=== PATIENT | female | born 1950 | race Caucasian/White ===

== ENCOUNTER 2016-10-14 14:04 | Inpatient (IN) | payer MEDICARE, OTHER ==
[~2016-10-14 14:04] MED LIST: ADULT LOW DOSE81 MG; AMITRIPTYLINE H25 M1 PO; AMITRIPTYLINE H50 M1 PO; ASPIR 8181 M1 PO; ASPIRIN EC81 MG PO; B COMPLEX1 TAB; BENAZEPRIL HCL20 M2 PO; BENAZEPRIL HCL20 MG; BUMETANIDE0.5 M1 PO; BUMETANIDE2 MG; CEFAZOLIN2000 MG/50 IV; CHOLESTYRAMINE378 GM; CINNAMON500 M1 PO; CLONIDINE HCL0.1 M2 PO; COREG CR40 MG; COREG25 M1 PO; COUMADIN2.5 MG; COUMADIN4 M1 PO; COUMADIN5 M2 PO; COUMADIN5 MG; CYCLOBENZAPRINE10 MG; DAILY MULTIPLE1 EAC2 PO; DIGITEK250 MCG; DIOVAN320 M1 PO; DOCUSATE CALCI240 M1 PO; DOCUSATE SODIU100 M2 PO; DOK250 MG; DULCOLAX10 MG RC; FEOSOL325 M1 PO; FISH OIL 1,0001 CA1; FISH OIL 1,2001 EAC4 PO; FLOMAX0.4 M1 PO; GARLIC1 CAP; GARLIC500 M2 PO; GLUCOPHAGE500 M3 PO; GLUCOSAMINE/CHO1 T; HUMALOG100 UNITS/ SC; HYDROCODONE; HYDROCODONE/APA1 CAP; IBUPROFEN400 M1 PO; IBUPROFEN800 MG; METFORMIN HCL500 M2 PO; MULTIVITAMINS1 EAC6 PO; NEURONTIN300 M1 PO; NORCO 5-325 TA1 EACH PO; NORMAL SALINE FL2 ML IJ; NORVASC5 M2 PO; PACERONE200 M1 PO; POTASSIUM CHLO10 ME2 PO; POTASSIUM CHLO20 MEQ; POTASSIUM GLUC500 MG PO; PRAVACHOL40 M1 PO; PREDNISONE5 M1 PO; PREMARIN0.625 MG; PROTONIX40 M2 PO; ROXICODONE5 M2 PO; SUPER B COMPLE1 EAC2 PO; TIROSINT25 MC1 PO; TRAMADOL; TRAMADOL HCL50 MG; TYLENOL325 M2 PO; VITAMIN C WIT1000 M3 PO; VITAMIN D-32000 UNI3 PO; VITAMIN D32000 UNI2 PO; VYTORIN 10/40 T1 TAB; ZANAFLEX4 M; ZANAFLEX4 M3 PO
[2016-10-14] MEDS ORDERED: COUMADIN4 M1 PO (14:13)
[2016-10-14] MEDS ORDERED: COUMADIN5 M2 PO (14:13)
[2016-10-14] MEDS ORDERED: COREG25 M1 PO (14:14)
[2016-10-14] MEDS ORDERED: NEURONTIN100 M1 PO (14:14)
[2016-10-14] MEDS ORDERED: COZAAR100 M1 PO (14:14)
[2016-10-14] MEDS ORDERED: PRAVASTATIN SOD40 M1 PO (14:14)
[2016-10-14] MEDS ORDERED: BUMETANIDE0.5 M1 PO (14:15)
[2016-10-14] MEDS ORDERED: AMITRIPTYLINE H25 M1 PO (14:15)
[2016-10-14] MEDS ORDERED: GLUCOPHAGE XR500 M1 PO (14:15)
[2016-10-14] MEDS ORDERED: POTASSIUM CHLO10 ME2 PO (14:15)
[2016-10-14] MEDS ORDERED: PROTONIX40 M2 PO (14:15)
[2016-10-14] MEDS ORDERED: SYNTHROID25 MC1 PO (14:16)
[2016-10-14] MEDS ORDERED: PERCOCET 10-321 EACH PO (14:16)
[2016-10-14] MEDS ORDERED: ASPIRIN81 M1 PO (14:17)
[2016-10-14] MEDS ORDERED: DOCUSATE SODIU100 M2 PO (14:18)
[2016-10-14] MEDS ORDERED: NEPHROCAPS SOFTG1 M1 PO (14:19)
[2016-10-14] MEDS ORDERED: VITAMIN C1000 M1 PO (14:19)
[2016-10-14] MEDS ORDERED: FISH OIL 1,2001 EAC8 PO (14:20)
[2016-10-14] MEDS ORDERED: CINNAMON500 M1 PO (14:21)
[2016-10-14] MEDS ORDERED: GARLIC1000 M1 PO (14:21)
[2016-10-14] MEDS ORDERED: VITAMIN D31000 UNI3 PO (14:21)
[2016-10-14 15:58] LABS: ANION GAP 22 mmol/L (0-20); BLOOD UREA NITROGEN 97 mg/dl (6-24); CARBON DIOXIDE-VENOUS 17 mmol/L (22-32); CHLORIDE 103 mmol/l (96-110); GLUCOSE 80 mg/dL (70-110); POTASSIUM 6.1 mmol/L (3.7-5.1); SODIUM 136 mmol/L (135-145)
[2016-10-14 15:59] LABS: ALB/GLOB RATIO 0.7 (0.8-2.0); ALBUMIN 2.8 g/dl (3.5-5.0); BILIRUBIN,TOTAL 0.4 mg/dl (0-1.5); CALCIUM 10.2 mg/dl (8.5-10.5); eGFR VALUE FOR BLACK 2 mL/Min
[2016-10-14 16:00] LABS: ALKALINE PHOSPHATASE 72 U/L (33-138); ALT/SGPT 16 U/L (12-78); AST/SGOT 8 U/L (10-40)
[2016-10-14 16:01] LABS: INR 3.6 INR (0.9-1.1); PROTHROMBIN TIME 42.9 SECONDS (9.0-13.6)
[2016-10-14 16:42] LABS: BASO % 0.2 % (0-2); EOS % 8.2 % (0-7); EOSINOPHIL ABSOLUTE COUNT 1.5 tho/cmm (0.0-0.7); HCT-HEMATOCRIT 29.2 % (34.0-49.0); HGB-HEMOGLOBIN 9.6 gm/dl (12.0-15.5); IMMATURE GRANULOCYTES ABSOLUTE 0.32 tho/cmm (0-0.03); IMMATURE GRANULOCYTES PERCENT 1.8 % (0-0.3); LYMPH % 18.9 % (20-45); LYMPH ABSOLUTE COUNT 3.4 tho/cmm (0.8-4.5); MCH (MEAN CORPUSCULAR HGB) 28.2 pg (28.0-32.0); MCHC MEAN CORPUSCULAR HGB CONC 32.9 % (32.0-36.0); MCV (MEAN CELL VOLUME) 85.9 fl (82.0-96.0); MEAN PLATELET VOLUME 8.8 cmc (9.4-12.4); MONO % 10.4 % (0-12); MONOCYTE ABSOLUTE COUNT 1.9 tho/cmm (0.0-1.2); NEUTROPHILS % 60.5 % (40-80); PLATELET COUNT 210 tho/cmm (150-450); RED CELL DISTRIBUTION WIDTH 14.4 % (12.4-16.4); WHITE BLOOD COUNT 18.1 tho/cmm (4.0-10.0)
[2016-10-14 17:18] LABS: PROCALCITONIN 0.42 ng/ml (0.05-0.09)
[2016-10-14 21:43] LABS: ANION GAP 22 mmol/L (0-20); BLOOD UREA NITROGEN 97 mg/dl (6-24); CALCIUM 9.7 mg/dl (8.5-10.5); CARBON DIOXIDE-VENOUS 19 mmol/L (22-32); CHLORIDE 103 mmol/l (96-110); GLUCOSE 72 mg/dL (70-110); POTASSIUM 5.6 mmol/L (3.7-5.1); SODIUM 138 mmol/L (135-145); eGFR VALUE FOR BLACK 3 mL/Min
[2016-10-14 23:35] LABS: POTASSIUM 4.4 mmol/L (3.7-5.1)
[2016-10-15 04:57] LABS: BASO % 0.2 % (0-2); EOS % 10.5 % (0-7); EOSINOPHIL ABSOLUTE COUNT 1.3 tho/cmm (0.0-0.7); HCT-HEMATOCRIT 26.6 % (34.0-49.0); HGB-HEMOGLOBIN 8.7 gm/dl (12.0-15.5); IMMATURE GRANULOCYTES ABSOLUTE 0.18 tho/cmm (0-0.03); IMMATURE GRANULOCYTES PERCENT 1.4 % (0-0.3); LYMPH % 13.4 % (20-45); LYMPH ABSOLUTE COUNT 1.7 tho/cmm (0.8-4.5); MCH (MEAN CORPUSCULAR HGB) 27.9 pg (28.0-32.0); MCHC MEAN CORPUSCULAR HGB CONC 32.7 % (32.0-36.0); MCV (MEAN CELL VOLUME) 85.3 fl (82.0-96.0); MONO % 7.8 % (0-12); NEUTROPHIL ABSOLUTE COUNT 8.4 tho/cmm (1.6-8.0); NEUTROPHIL-AUTOMATED 8.4 tho/cmm (1.6-8.0); NEUTROPHILS % 66.7 % (40-80); PLATELET COUNT 196 tho/cmm (150-450); RED BLOOD COUNT 3.12 mil/cmm (4.00-5.20); RED CELL DISTRIBUTION WIDTH 14.4 % (12.4-16.4); WHITE BLOOD COUNT 12.6 tho/cmm (4.0-10.0)
[2016-10-15 05:28] LABS: INR 2.7 INR (0.9-1.1); PROTHROMBIN TIME 32.7 SECONDS (9.0-13.6)
[2016-10-15 05:33] LABS: ALB/GLOB RATIO 0.6 (0.8-2.0); ALBUMIN 2.3 g/dl (3.5-5.0); ALKALINE PHOSPHATASE 65 U/L (33-138); ALT/SGPT 14 U/L (12-78); ANION GAP 20 mmol/L (0-20); AST/SGOT 14 U/L (10-40); BILIRUBIN,TOTAL 0.4 mg/dl (0-1.5); BLOOD UREA NITROGEN 64 mg/dl (6-24); CALCIUM 8.3 mg/dl (8.5-10.5); CARBON DIOXIDE-VENOUS 23 mmol/L (22-32); CHLORIDE 100 mmol/l (96-110); MAGNESIUM 1.8 mg/dl (1.8-2.6); POTASSIUM 3.9 mmol/L (3.7-5.1); SODIUM 139 mmol/L (135-145)
[2016-10-15 06:08] LABS: GLUCOSE 190 mg/dL (70-110); PHOSPHOROUS 4.5 mg/dl (2.5-4.9); eGFR VALUE FOR BLACK 4 mL/Min
[2016-10-16 05:03] LABS: INR 2.1 INR (0.9-1.1)
[2016-10-16 05:08] LABS: PROTHROMBIN TIME 24.4 SECONDS (9.0-13.6)
[2016-10-16 05:09] LABS: BASO % 0.2 % (0-2); EOS % 13.4 % (0-7); EOSINOPHIL ABSOLUTE COUNT 1.8 tho/cmm (0.0-0.7); HCT-HEMATOCRIT 27.3 % (34.0-49.0); HGB-HEMOGLOBIN 8.8 gm/dl (12.0-15.5); IMMATURE GRANULOCYTES ABSOLUTE 0.42 tho/cmm (0-0.03); IMMATURE GRANULOCYTES PERCENT 3.2 % (0-0.3); LYMPH % 20.1 % (20-45); LYMPH ABSOLUTE COUNT 2.6 tho/cmm (0.8-4.5); MCH (MEAN CORPUSCULAR HGB) 27.9 pg (28.0-32.0); MCHC MEAN CORPUSCULAR HGB CONC 32.2 % (32.0-36.0); MCV (MEAN CELL VOLUME) 86.7 fl (82.0-96.0); MEAN PLATELET VOLUME 8.9 cmc (9.4-12.4); MONO % 10.7 % (0-12); MONOCYTE ABSOLUTE COUNT 1.4 tho/cmm (0.0-1.2); NEUTROPHIL ABSOLUTE COUNT 6.8 tho/cmm (1.6-8.0); NEUTROPHIL-AUTOMATED 6.8 tho/cmm (1.6-8.0); NEUTROPHILS % 52.4 % (40-80); PLATELET COUNT 191 tho/cmm (150-450); RED BLOOD COUNT 3.15 mil/cmm (4.00-5.20); RED CELL DISTRIBUTION WIDTH 14.6 % (12.4-16.4)
[2016-10-16 05:13] LABS: ALBUMIN 2.1 g/dl (3.5-5.0); ANION GAP 14 mmol/L (0-20); BLOOD UREA NITROGEN 33 mg/dl (6-24); CALCIUM 7.7 mg/dl (8.5-10.5); CARBON DIOXIDE-VENOUS 26 mmol/L (22-32); CHLORIDE 102 mmol/l (96-110); PHOSPHOROUS 4.8 mg/dl (2.5-4.9); POTASSIUM 3.6 mmol/L (3.7-5.1); SODIUM 138 mmol/L (135-145); eGFR VALUE FOR BLACK 6 mL/Min
[2016-10-16 05:27] LABS: CREATININE 7.58 mg/dl (0.50-1.10); GLUCOSE 92 mg/dL (70-110)
[2016-10-17 05:06] LABS: HGB-HEMOGLOBIN 8.9 gm/dl (12.0-15.5); MCH (MEAN CORPUSCULAR HGB) 27.7 pg (28.0-32.0); MCHC MEAN CORPUSCULAR HGB CONC 31.8 % (32.0-36.0); MCV (MEAN CELL VOLUME) 87.2 fl (82.0-96.0); MEAN PLATELET VOLUME 8.8 cmc (9.4-12.4); NEUTROPHIL-AUTOMATED 7.3 tho/cmm (1.6-8.0); PLATELET COUNT 189 tho/cmm (150-450); RED BLOOD COUNT 3.21 mil/cmm (4.00-5.20); RED CELL DISTRIBUTION WIDTH 14.2 % (12.4-16.4); WHITE BLOOD COUNT 14.4 tho/cmm (4.0-10.0)
[2016-10-17 05:15] LABS: ANION GAP 13 mmol/L (0-20); BLOOD UREA NITROGEN 18 mg/dl (6-24); CARBON DIOXIDE-VENOUS 27 mmol/L (22-32); CHLORIDE 101 mmol/l (96-110); GLUCOSE 90 mg/dL (70-110); POTASSIUM 3.5 mmol/L (3.7-5.1); SODIUM 137 mmol/L (135-145); eGFR VALUE FOR BLACK 8 mL/Min
[2016-10-17 05:41] LABS: INR 1.5 INR (0.9-1.1); PROTHROMBIN TIME 17.7 SECONDS (9.0-13.6)
[2016-10-17 09:56] LABS: BAND % 11 % (0-20); BAND ABSOLUTE COUNT 1.6 tho/cmm (0-2.0); EOSINOPHIL % 14 % (0-7)
[2016-10-18 03:55] LABS: HGB-HEMOGLOBIN 8.8 gm/dl (12.0-15.5); MCHC MEAN CORPUSCULAR HGB CONC 32.6 % (32.0-36.0); MEAN PLATELET VOLUME 8.7 cmc (9.4-12.4); NEUTROPHIL-AUTOMATED 8.4 tho/cmm (1.6-8.0); PLATELET COUNT 192 tho/cmm (150-450); RED BLOOD COUNT 3.14 mil/cmm (4.00-5.20); RED CELL DISTRIBUTION WIDTH 13.8 % (12.4-16.4); WHITE BLOOD COUNT 16.2 tho/cmm (4.0-10.0)
[2016-10-18 03:56] LABS: INR 1.4 INR (0.9-1.1); PROTHROMBIN TIME 15.9 SECONDS (9.0-13.6)
[2016-10-18 04:04] LABS: BASO % 0.5 % (0-2); BASO ABSOLUTE COUNT 0.1 tho/cmm (0.0-0.2); EOS % 15.2 % (0-7); EOSINOPHIL ABSOLUTE COUNT 2.5 tho/cmm (0.0-0.7); IMMATURE GRANULOCYTES ABSOLUTE 0.81 tho/cmm (0-0.03); LYMPH % 18.5 % (20-45); MONO % 9.1 % (0-12); MONOCYTE ABSOLUTE COUNT 1.5 tho/cmm (0.0-1.2); NEUTROPHIL ABSOLUTE COUNT 8.4 tho/cmm (1.6-8.0); NEUTROPHILS % 51.7 % (40-80)
[2016-10-18 04:06] LABS: ALBUMIN 2.2 g/dl (3.5-5.0); ANION GAP 13 mmol/L (0-20); BLOOD UREA NITROGEN 23 mg/dl (6-24); C-REACTIVE PROTEIN 5.1 mg/dl (0-0.9); CALCIUM 8.3 mg/dl (8.5-10.5); CARBON DIOXIDE-VENOUS 24 mmol/L (22-32); CHLORIDE 100 mmol/l (96-110); CREATININE 7.19 mg/dl (0.50-1.10); GLUCOSE 84 mg/dL (70-110); MAGNESIUM 1.5 mg/dl (1.8-2.6); PHOSPHOROUS 4.7 mg/dl (2.5-4.9); POTASSIUM 3.4 mmol/L (3.7-5.1); SODIUM 134 mmol/L (135-145); eGFR VALUE FOR BLACK 6 mL/Min
[2016-10-19 02:45] LABS: HGB-HEMOGLOBIN 9.3 gm/dl (12.0-15.5); MCH (MEAN CORPUSCULAR HGB) 28.6 pg (28.0-32.0); MCHC MEAN CORPUSCULAR HGB CONC 33.2 % (32.0-36.0); MCV (MEAN CELL VOLUME) 86.2 fl (82.0-96.0); MEAN PLATELET VOLUME 8.9 cmc (9.4-12.4); NEUTROPHIL-AUTOMATED 10.1 tho/cmm (1.6-8.0); PLATELET COUNT 199 tho/cmm (150-450); RED BLOOD COUNT 3.25 mil/cmm (4.00-5.20); RED CELL DISTRIBUTION WIDTH 13.6 % (12.4-16.4); WHITE BLOOD COUNT 17.6 tho/cmm (4.0-10.0)
[2016-10-19 02:48] LABS: INR 1.2 INR (0.9-1.1); PROTHROMBIN TIME 14.6 SECONDS (9.0-13.6)
[2016-10-19 02:55] LABS: ANION GAP 13 mmol/L (0-20); BLOOD UREA NITROGEN 13 mg/dl (6-24); C-REACTIVE PROTEIN 3.2 mg/dl (0-0.9); CALCIUM 8.3 mg/dl (8.5-10.5); CARBON DIOXIDE-VENOUS 25 mmol/L (22-32); CHLORIDE 100 mmol/l (96-110); CREATININE 5.78 mg/dl (0.50-1.10); GLUCOSE 122 mg/dL (70-110); MAGNESIUM 1.6 mg/dl (1.8-2.6); POTASSIUM 3.4 mmol/L (3.7-5.1); SODIUM 135 mmol/L (135-145); eGFR VALUE FOR BLACK 8 mL/Min
[2016-10-19 02:57] LABS: BASO % 0.3 % (0-2); BASO ABSOLUTE COUNT 0.1 tho/cmm (0.0-0.2); EOS % 10.3 % (0-7); EOSINOPHIL ABSOLUTE COUNT 1.8 tho/cmm (0.0-0.7); IMMATURE GRANULOCYTES ABSOLUTE 1.26 tho/cmm (0-0.03); IMMATURE GRANULOCYTES PERCENT 7.2 % (0-0.3); LYMPH % 16.1 % (20-45); LYMPH ABSOLUTE COUNT 2.8 tho/cmm (0.8-4.5); MONO % 8.7 % (0-12); MONOCYTE ABSOLUTE COUNT 1.5 tho/cmm (0.0-1.2); NEUTROPHIL ABSOLUTE COUNT 10.1 tho/cmm (1.6-8.0); NEUTROPHILS % 57.4 % (40-80)
[2016-10-19 03:26] LABS: PROCALCITONIN 0.51 ng/ml (0.05-0.09)
[2016-10-20 04:26] LABS: HCT-HEMATOCRIT 27.8 % (34.0-49.0); MCH (MEAN CORPUSCULAR HGB) 28.1 pg (28.0-32.0); MCHC MEAN CORPUSCULAR HGB CONC 32.4 % (32.0-36.0); MCV (MEAN CELL VOLUME) 86.9 fl (82.0-96.0); MEAN PLATELET VOLUME 8.8 cmc (9.4-12.4); NEUTROPHIL-AUTOMATED 8.6 tho/cmm (1.6-8.0); PLATELET COUNT 190 tho/cmm (150-450); RED CELL DISTRIBUTION WIDTH 13.8 % (12.4-16.4)
[2016-10-20 04:35] LABS: INR 1.2 INR (0.9-1.1); PROTHROMBIN TIME 13.4 SECONDS (9.0-13.6)
[2016-10-20 04:43] LABS: ALBUMIN 2.3 g/dl (3.5-5.0); ANION GAP 15 mmol/L (0-20); BLOOD UREA NITROGEN 19 mg/dl (6-24); CALCIUM 8.5 mg/dl (8.5-10.5); CARBON DIOXIDE-VENOUS 25 mmol/L (22-32); CHLORIDE 102 mmol/l (96-110); GLUCOSE 118 mg/dL (70-110); PHOSPHOROUS 6.2 mg/dl (2.5-4.9); POTASSIUM 3.4 mmol/L (3.7-5.1); SODIUM 139 mmol/L (135-145); eGFR VALUE FOR BLACK 6 mL/Min
[2016-10-20 04:48] LABS: BASO % 0.4 % (0-2); BASO ABSOLUTE COUNT 0.1 tho/cmm (0.0-0.2); EOS % 13.2 % (0-7); EOSINOPHIL ABSOLUTE COUNT 2.1 tho/cmm (0.0-0.7); IMMATURE GRANULOCYTES PERCENT 5.6 % (0-0.3); LYMPH % 20.6 % (20-45); LYMPH ABSOLUTE COUNT 3.3 tho/cmm (0.8-4.5); MONO % 6.2 % (0-12); NEUTROPHIL ABSOLUTE COUNT 8.6 tho/cmm (1.6-8.0)
[2016-10-20 04:59] LABS: CREATININE 7.29 mg/dl (0.50-1.10)
[2016-10-21 04:18] LABS: BASO % 0.4 % (0-2); BASO ABSOLUTE COUNT 0.1 tho/cmm (0.0-0.2); EOS % 6.7 % (0-7); EOSINOPHIL ABSOLUTE COUNT 1.1 tho/cmm (0.0-0.7); HCT-HEMATOCRIT 28.8 % (34.0-49.0); HGB-HEMOGLOBIN 9.3 gm/dl (12.0-15.5); IMMATURE GRANULOCYTES ABSOLUTE 0.79 tho/cmm (0-0.03); IMMATURE GRANULOCYTES PERCENT 4.8 % (0-0.3); LYMPH % 17.6 % (20-45); LYMPH ABSOLUTE COUNT 2.9 tho/cmm (0.8-4.5); MCH (MEAN CORPUSCULAR HGB) 28.2 pg (28.0-32.0); MCHC MEAN CORPUSCULAR HGB CONC 32.3 % (32.0-36.0); MCV (MEAN CELL VOLUME) 87.3 fl (82.0-96.0); MEAN PLATELET VOLUME 8.8 cmc (9.4-12.4); MONO % 8.5 % (0-12); MONOCYTE ABSOLUTE COUNT 1.4 tho/cmm (0.0-1.2); NEUTROPHIL ABSOLUTE COUNT 10.3 tho/cmm (1.6-8.0); NEUTROPHIL-AUTOMATED 10.3 tho/cmm (1.6-8.0); PLATELET COUNT 194 tho/cmm (150-450); RED CELL DISTRIBUTION WIDTH 14.2 % (12.4-16.4); WHITE BLOOD COUNT 16.6 tho/cmm (4.0-10.0)
[2016-10-21 04:27] LABS: ALBUMIN 2.6 g/dl (3.5-5.0); ANION GAP 15 mmol/L (0-20); BLOOD UREA NITROGEN 17 mg/dl (6-24); CALCIUM 8.9 mg/dl (8.5-10.5); CARBON DIOXIDE-VENOUS 25 mmol/L (22-32); CHLORIDE 102 mmol/l (96-110); CREATININE 5.77 mg/dl (0.50-1.10); GLUCOSE 119 mg/dL (70-110); PHOSPHOROUS 4.7 mg/dl (2.5-4.9); POTASSIUM 3.8 mmol/L (3.7-5.1); SODIUM 138 mmol/L (135-145); eGFR VALUE FOR BLACK 8 mL/Min
[2016-10-22 04:21] LABS: BASO % 0.3 % (0-2); EOS % 8.9 % (0-7); EOSINOPHIL ABSOLUTE COUNT 1.3 tho/cmm (0.0-0.7); HCT-HEMATOCRIT 28.2 % (34.0-49.0); HGB-HEMOGLOBIN 8.9 gm/dl (12.0-15.5); IMMATURE GRANULOCYTES ABSOLUTE 0.43 tho/cmm (0-0.03); IMMATURE GRANULOCYTES PERCENT 2.9 % (0-0.3); LYMPH % 19.4 % (20-45); LYMPH ABSOLUTE COUNT 2.9 tho/cmm (0.8-4.5); MCH (MEAN CORPUSCULAR HGB) 27.7 pg (28.0-32.0); MCHC MEAN CORPUSCULAR HGB CONC 31.6 % (32.0-36.0); MCV (MEAN CELL VOLUME) 87.9 fl (82.0-96.0); MEAN PLATELET VOLUME 8.7 cmc (9.4-12.4); MONO % 10.4 % (0-12); MONOCYTE ABSOLUTE COUNT 1.5 tho/cmm (0.0-1.2); NEUTROPHIL ABSOLUTE COUNT 8.5 tho/cmm (1.6-8.0); NEUTROPHIL-AUTOMATED 8.5 tho/cmm (1.6-8.0); NEUTROPHILS % 58.1 % (40-80); PLATELET COUNT 188 tho/cmm (150-450); RED BLOOD COUNT 3.21 mil/cmm (4.00-5.20); RED CELL DISTRIBUTION WIDTH 14.6 % (12.4-16.4); WHITE BLOOD COUNT 14.7 tho/cmm (4.0-10.0)
[2016-10-22 04:32] LABS: ALBUMIN 2.6 g/dl (3.5-5.0); ANION GAP 16 mmol/L (0-20); BLOOD UREA NITROGEN 25 mg/dl (6-24); CALCIUM 9.2 mg/dl (8.5-10.5); CARBON DIOXIDE-VENOUS 24 mmol/L (22-32); CHLORIDE 102 mmol/l (96-110); CREATININE 7.12 mg/dl (0.50-1.10); GLUCOSE 102 mg/dL (70-110); POTASSIUM 3.9 mmol/L (3.7-5.1); SODIUM 138 mmol/L (135-145); eGFR VALUE FOR BLACK 6 mL/Min
[2016-10-22 04:38] LABS: PHOSPHOROUS 6.7 mg/dl (2.5-4.9)
[2016-10-22] MEDS ORDERED: GAVILAX17 G2 PO (14:05)
[2016-10-22] MEDS ORDERED: NOVOLOG100 UNITS/ SC (14:08)
[2016-10-22] MEDS ORDERED: REQUIP0.5 M1 PO (14:12)
[2017-03-11] MEDS ORDERED: MACRODANTIN50 M2 PO (11:37)
== END 2016-10-22 14:54 | DRG 871 ==
LOC: PCUA 14:04
PROVIDERS: Family Medicine; Internal Medicine; Internal Medicine Nephrology; Radiology Diagnostic Radiology; ADMIT Hospitalist
PROC: 02HV33Z Insertion of Infusion Device into Superior Vena Cava, Percutaneous Approach (ICD-10-PCS; principal; 2016-10-14)
PROC: 5A1D60Z (ICD-10-PCS; 2016-10-14)
PROC: 30233L1 Transfusion of Nonautologous Fresh Plasma into Peripheral Vein, Percutaneous Approach (ICD-10-PCS; 2016-10-15)
PROC: 30233L1 Transfusion of Nonautologous Fresh Plasma into Peripheral Vein, Percutaneous Approach (ICD-10-PCS; 2016-10-15)
PROC: 30233K1 Transfusion of Nonautologous Frozen Plasma into Peripheral Vein, Percutaneous Approach (ICD-10-PCS; 2016-10-15)
PROC: 30233K1 Transfusion of Nonautologous Frozen Plasma into Peripheral Vein, Percutaneous Approach (ICD-10-PCS; 2016-10-15)
PROC: 05HM33Z Insertion of Infusion Device into Right Internal Jugular Vein, Percutaneous Approach (ICD-10-PCS; 2016-10-20)
DX: A41.9 Sepsis, unspecified organism (principal); N17.0 Acute kidney failure with tubular necrosis; G93.49 Other encephalopathy; G93.41 Metabolic encephalopathy; I13.2 Hypertensive heart and chronic kidney disease with heart failure and with stage 5 chronic kidney disease, or end stage renal disease; N18.6 End stage renal disease; I48.91 Unspecified atrial fibrillation; E87.2 Acidosis; N39.0 Urinary tract infection, site not specified; E11.22 Type 2 diabetes mellitus with diabetic chronic kidney disease; E87.5 Hyperkalemia; I50.9 Heart failure, unspecified; E03.9 Hypothyroidism, unspecified; M79.7 Fibromyalgia; M54.9 Dorsalgia, unspecified; N20.0 Calculus of kidney; D64.9 Anemia, unspecified; E87.6 Hypokalemia; E83.42 Hypomagnesemia; Z88.8 Allergy status to other drugs, medicaments and biological substances; Z86.73 Personal history of transient ischemic attack (TIA), and cerebral infarction without residual deficits; Z79.01 Long term (current) use of anticoagulants; Z87.891 Personal history of nicotine dependence
CPT/HCPCS: C1750; C1751; C1752; C1769; J0690; J0885; J1644; J1815; J2150; J2250; J2543; J3010; J3370; J3475; J7030; P9017